=== PATIENT | female | born 1985 | race Caucasian/White ===

== ENCOUNTER 2017-04-09 20:12 | Emergency (ER) | payer OTHER, MEDICAID ==
[~2017-04-09] VITALS: Ht 162.6 cm; Wt 50.0 kg
[2017-04-09 20:24] VITALS: BP 120/83; PULSE 81; RESP 17; TEMP 98.2; O2SAT 98
[2017-04-09] MEDS ORDERED: TETANUS/DIPHTHERIA TOXOID ADULT 0.5 ML VIAL IM ONE (20:30)
[2017-04-09] MEDS ORDERED: IBUPROFEN 600 MG TAB PO ONE (20:30)
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
[2017-04-09] MEDS ORDERED: LIDOCAINE HCL 1% 50 ML VIAL INFIL ONE (20:45)
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
== END 2017-04-09 21:25 | disposition home or self-care (01) ==
LOC: PHED 20:12
DX: S61.411A Laceration without foreign body of right hand, initial encounter (principal); S20.211A Contusion of right front wall of thorax, initial encounter; V89.2XXA Person injured in unspecified motor-vehicle accident, traffic, initial encounter
CPT/HCPCS: 71101; 73130; 90471; 90714